=== PATIENT | male | born 1980 | race African-American/Black ===

== ENCOUNTER → 2016-12-17 | Outpatient (CLI) | payer OTHER ==
--- NOTE | ~2016-12-17 | US49 ---
[facility] A Service of [facility] & [facility] RADIOLOGY TEXT RESULTS PATIENT: JUAN PABLO HAYWARD LOCATION: [facility] : 84 UNIT #: [id number] AGE: [address]: RICHELLE TORREZ APRN SEX: M ORDER DR: [id number] [facility] [address] [place], [place] [address] [id number] O MR#: [id number] #: [id number] NAME: JUAN APBLO HAYWARD : 1980 SEX: M STUDY DATE/TIME: 12/17/2016 14:38 UNIT: [facility] ROOM: STUDY DESCRIPTION: US Extremity Non Vasc Complete Attending Physician: Richelle Torrez Aprn Referring Physician: Richelle Torrez Aprn Ordering Physician: Richelle Torrez Aprn Primary Care Physician: Richelle Torrez Aprn MEDICAL IMAGING REPORT This report is preliminary unless electronic signature is present EXAM Left upper extremity ultrasound HISTORY Patient was injured from a tree branch a week ago with an injury in the antecubital region on the left side. There was a puncture wound there. The wound was cleaned at [facility] a week ago, and the patient has been on antibiotics, but there is still a palpable area of concern that has drainage. FINDINGS Ultrasound of the antecubital fossa shows a hypoechoic area measuring up to 3.1 x 1.0 cm. Within it is some echogenic linear material suggesting retained foreign bodies. This material is at least 15 mm in length. It is a few millimeters beneath the skin. IMPRESSION 1. There is some echogenic material in the antecubital fossa anterior soft tissues that is surrounded by hypoechoic tissues and the echogenic areas suggest retained foreign bodies from the puncture wound from a tree branch. 2. I am attempting to contact the ordering physician at this time. STAT * RESULT Dictated by... Chandrakant Cole M.D. [facility] A Service of [facility] & [facility] RADIOLOGY TEXT RESULTS PATIENT: JUAN PABLO HAYWARD LOCATION: [facility] : 84 UNIT #: [id number] AGE: [address]: RICHELLE TORREZ APRN SEX: M ORDER DR: THIS IS AN ELECTRONICALLY VERIFIED REPORT Chandrakant Cole M.D. at 12/18/2016 1:25 PM FEL/to TD: 12/18/2016 10:27 JOB #: [id number] MEDICAL IMAGING REPORT Page 1 of 1 COPY
== END | disposition home or self-care (01) ==
LOC: CGUS 14:21
DX: R22.32 Localized swelling, mass and lump, left upper limb (principal); T14.8 Other injury of unspecified body region
CPT/HCPCS: 76881